=== PATIENT | male | born 1965 | race African-American/Black ===

== ENCOUNTER 2025-11-11 15:45 | Emergency (ER) | payer MEDICAID ==
[~2025-11-11] VITALS: Ht 177.8 cm; Wt 90.0 kg
[2025-11-11 15:58] VITALS: TEMP 36.7; O2SAT 99
[2025-11-11 17:01] LABS: BASOPHILS % 0.5 % (0.0-2.0); EOSINOPHILS % 0.8 % (0.0-5.0); HEMATOCRIT. 39.0 % (42.0-52.0); HEMOGLOBIN. 12.9 g/dL (14.0-18.0); LYMPHOCYTES % 20.9 % (20.0-50.0); MEAN PLATELET VOLUME 8.6 fl (7.4-10.4); MONOCYTES % 7.3 % (2.0-8.0); NEUTROPHILS % 70.5 % (40.0-76.0); PLATELET 205 x1000/uL (130-400); RED BLOOD CELL COUNT 4.31 mill/uL (4.7-6.1); RED CELL DISTRIBUTION WIDTH 14.2 % (11.6-14.6)
[2025-11-11 17:23] LABS: CREATININE 1.2 mg/dL (0.6-1.3); UREA NITROGEN BLOOD 11 mg/dL (9-23)
[2025-11-11 17:25] LABS: TROPONIN I HIGH SENSITIVITY 7 ng/L (3.0-53)
[2025-11-11 18:21] VITALS: BP 149/86; PULSE 80; RESP 16; O2SAT 100
== END 2025-11-11 18:21 | disposition home or self-care (01) ==
LOC: ER 15:45
DX: I10 Essential (primary) hypertension (principal); I25.10 Atherosclerotic heart disease of native coronary artery without angina pectoris; Z88.0 Allergy status to penicillin; Z90.49 Acquired absence of other specified parts of digestive tract; Z95.1 Presence of aortocoronary bypass graft
CPT/HCPCS: 80048; 85025; 84484; 36415; 71045; 93005; 99285; Z7610